=== PATIENT | male | born 1955 | race Caucasian/White ===

== ENCOUNTER 2017-07-08 17:49 | Inpatient (IN) | payer BC ==
[~2017-07-08] VITALS: Ht 180.3 cm; Wt 81.5 kg
[2017-07-08 18:14] LABS: BASOPHIL COUNT 0.1 K/uL (0-0.1); EOSINOPHIL (%) 2.1 % (0-5); EOSINOPHIL COUNT 0.3 K/uL (0-0.3); HEMATOCRIT 44.4 % (38.0-50.0); IMMATURE GRANULOCYTE (%) 0.6 % (0.0-0.7); IMMATURE GRANULOCYTE COUNT 0.1 K/uL; INSTRUMENT ABS NEUTROPHIL CT 10.1 K/uL; LYMPHOCYTE COUNT 2.2 K/uL (1.0-2.8); MCH 31.2 PG (29.0-34.0); MCHC 33.3 G/DL (30.0-36.0); MCV 93.5 FL (86-99); MEAN PLAT.VOLUME 10.2 uM^3 (9.0-12.4); MONOCYTE (%) 6.5 % (3-12); MONOCYTE COUNT 0.9 K/uL (0-0.8); NEUTROPHIL (%) 74.5 % (45-76); NEUTROPHIL COUNT 10.1 K/uL (1.8-6.4); PLATELET COUNT 263 K/uL (156-360); RBC DIS.WIDTH-CV 13.3 % (11.8-14.6); RBC DIS.WIDTH-SD 45.5 % (39-53); RED BLOOD COUNT 4.75 M/uL (4.00-5.50); WHITE BLOOD COUNT 13.6 K/uL (4.1-10.2)
[2017-07-08 18:26] LABS: PROTHROMBIN TIME 11.7 SEC (10.2-12.9)
[2017-07-08 18:28] LABS: PTT 26.5 SEC (25-37)
[2017-07-08 18:33] LABS: AMYLASE 48 IU/L (1-118); CHLORIDE 105 mEq/L (99-109); POTASSIUM 3.4 mEq/L (3.7-5.4); SODIUM 140 mEq/L (136-147)
[2017-07-08 18:35] LABS: GLUCOSE 115 mg/dL (70-99)
[2017-07-08 18:36] LABS: ANION GAP 18 MEQ/L (2-14)
[2017-07-08 18:38] LABS: SERUM ETHYL ALCOHOL 41 mg/dL
[2017-07-08 18:39] LABS: GFR ESTIMATE (CALCULATED) > 59 mL/min/; TROP-I INTERPRETATION NEGATIVE; TROPONIN-I < 0.01 ng/mL (0.0-0.30)
[2017-07-08 18:40] LABS: UREA NITROGEN (BUN) 15 mg/dL (9-23)
[2017-07-08 18:42] LABS: LIPASE 11 U/L (1.0-51.0)
[2017-07-08] MEDS ORDERED: ERYTHROMYC1 APPLICAT RIGHT EYE (19:40)
[2017-07-08] MEDS ORDERED: LO-DOSE ASPIRIN81 M2 PO (19:40)
[2017-07-08 21:07] LABS: ADD MIUA? YES; BILIRUBIN NEGATIVE; BLOOD SMALL; COLOR YELLOW ((YELLOW)); GLUCOSE (STRIP) NEGATIVE; KETONES 5; LEUKOCYTES NEGATIVE; NITRITE NEGATIVE; PROTEIN (STRIP) 30; UROBILINOGEN 0.2 MG/DL (0.2-1.0)
[2017-07-08 21:21] VITALS: BP 200/107
[2017-07-08 21:21] LABS: AMPHETAMINE NEGATIVE (500 ng/mL); BARBITURATES NEGATIVE (200 ng/mL); BENZODIAZEPINES NEGATIVE (150 ng/mL); COCAINE NEGATIVE (150 ng/mL); INTERNAL CONTROLS VALID? YES; METHADONE NEGATIVE (200 ng/mL); METHAMPHETAMINE NEGATIVE (500 ng/mL); OPIATES (MORPHINE) NEGATIVE (100 ng/mL); OXYCODONE NEGATIVE (100 ng/mL); PHENCYCLIDINE NEGATIVE (25 ng/mL); PROPOXYPHENE NEGATIVE (300 ng/mL); THC CANNABINOIDS PRESUMPTIVE POSITIVE (50 ng/mL); TRICYCLIC ANTIDEPRESSANTS NEGATIVE (300 ng/mL)
[2017-07-08 21:22] LABS: ADD MEDTOX COMMENT Y
[2017-07-08 21:24] LABS: BACTERIA NONE SEEN /HPF; EPITHELIAL CELLS NONE SEEN /HPF; MUCUS NONE SEEN /LPF; RED BLOOD CELLS 0-5 /HPF (0-5); UCUL ADDED? NO; WHITE BLOOD CELLS 0-5 /HPF (0-5)
[2017-07-08 21:30] LABS: SPECIFIC GRAVITY 1.066 (1.000-1.030)
[2017-07-08 22:00] VITALS: BP 151/85
[2017-07-08 22:52] LABS: METH RESISTANT S AUREUS PCR NEGATIVE (NEGATIVE)
[2017-07-08 22:53] LABS: PROBE CHECK PASS; SPECIMEN PROCESSING CONTROL PASS
[2017-07-08 23:00] VITALS: BP 145/82
[2017-07-08 23:27] LABS: HDL CHOLESTEROL 50 MG/DL (Desirable>=40); LDL CHOLESTEROL 166 mg/dL (Desirable<100); NON-HDL CHOLESTEROL 192 mg/dL (Desirable<160); TOTAL CHOLESTEROL 242 mg/dL (Desirable<200); TRIGLYCERIDES 129 MG/DL (Normal: <150)
[2017-07-09] VITALS (26 sets, daily range): BP systolic 131–200; BP diastolic 70–138
[2017-07-09 06:51] LABS: Estimated Average Glucose 128 mg/dL (70-123); HEMOGLOBIN A1c (GLYCOHEMOGLOB) 6.1 % HGB (Below 5.7)
[2017-07-09 12:00] LABS: POINT-OF-CARE METER ID UU13113748
[2017-07-09 18:03] LABS: POINT-OF-CARE METER ID UU13113748
[2017-07-09 21:58] LABS: POINT-OF-CARE METER ID UU13113748
[2017-07-10] VITALS (18 sets, daily range): BP systolic 112–172; BP diastolic 52–99
[2017-07-10 05:48] LABS: EOSINOPHIL (%) 1.1 % (0-5); EOSINOPHIL COUNT 0.1 K/uL (0-0.3); HEMATOCRIT 46.6 % (38.0-50.0); IMMATURE GRANULOCYTE (%) 0.5 % (0.0-0.7); IMMATURE GRANULOCYTE COUNT 0.1 K/uL; INSTRUMENT ABS NEUTROPHIL CT 7.7 K/uL; LYMPHOCYTE COUNT 1.4 K/uL (1.0-2.8); MCH 30.4 PG (29.0-34.0); MCHC 33.7 G/DL (30.0-36.0); MCV 90.3 FL (86-99); MEAN PLAT.VOLUME 10.4 uM^3 (9.0-12.4); MONOCYTE (%) 9.4 % (3-12); NEUTROPHIL (%) 75.3 % (45-76); NEUTROPHIL COUNT 7.7 K/uL (1.8-6.4); PLATELET COUNT 244 K/uL (156-360); RBC DIS.WIDTH-CV 13.3 % (11.8-14.6); RBC DIS.WIDTH-SD 44.2 % (39-53); RED BLOOD COUNT 5.16 M/uL (4.00-5.50); WHITE BLOOD COUNT 10.2 K/uL (4.1-10.2)
[2017-07-10 06:31] LABS: ANION GAP 12 MEQ/L (2-14); CHLORIDE 100 MEQ/L (99-109); GFR ESTIMATE (CALCULATED) > 59 mL/min/; GLUCOSE 107 mg/dL (70-99); MAGNESIUM 1.9 mg/dl (1.3-2.7); SAMPLE HEMOLYSIS CHECK 0; SAMPLE ICTERIC CHECK 0; SAMPLE LIPEMIA CHECK 0; SODIUM 136 MEQ/L (136-147); UREA NITROGEN (BUN) 13 mg/dL (9-23)
[2017-07-10 06:36] LABS: POTASSIUM 4.1 MEQ/L (3.7-5.4)
[2017-07-10 12:50] LABS: POINT-OF-CARE METER ID UU14314083
[2017-07-10 18:00] LABS: POINT-OF-CARE METER ID UU14314083
[2017-07-10 21:55] LABS: POINT-OF-CARE METER ID UU14188625
[2017-07-11 03:45] VITALS: BP 118/60
[2017-07-11 07:45] LABS: POINT-OF-CARE METER ID UU14188625
[2017-07-11 07:52] VITALS: BP 142/85
[2017-07-11 12:00] VITALS: BP 102/64
[2017-07-11 12:54] LABS: POINT-OF-CARE METER ID UU14188625
[2017-07-11 16:00] VITALS: BP 133/81
[2017-07-11 17:28] LABS: POINT-OF-CARE METER ID UU14188625
[2017-07-11 19:59] VITALS: BP 154/101
[2017-07-11 20:54] LABS: POINT-OF-CARE METER ID UU14188625
[2017-07-11 23:36] VITALS: BP 151/87
[2017-07-12 07:19] LABS: ANION GAP 14 MEQ/L (2-14); CHLORIDE 99 MEQ/L (99-109); GFR ESTIMATE (CALCULATED) > 59 mL/min/; GLUCOSE 110 mg/dL (70-99); POTASSIUM 4.4 MEQ/L (3.7-5.4); SAMPLE HEMOLYSIS CHECK 0; SAMPLE ICTERIC CHECK 0; SAMPLE LIPEMIA CHECK 0; SODIUM 138 MEQ/L (136-147)
[2017-07-12 07:24] LABS: POINT-OF-CARE METER ID UU14188625
[2017-07-12 07:25] LABS: UREA NITROGEN (BUN) 36 mg/dL (9-23)
[2017-07-12 08:30] VITALS: BP 159/93
[2017-07-12 12:29] LABS: POINT-OF-CARE METER ID UU13113717
[2017-07-12 13:29] VITALS: BP 138/80
[2017-07-12 16:49] VITALS: BP 168/85
[2017-07-12 16:49] LABS: POINT-OF-CARE METER ID UU14174225
[2017-07-12 20:05] VITALS: BP 163/86
[2017-07-12 21:36] LABS: POINT-OF-CARE METER ID UU13113717
[2017-07-12 22:25] LABS: POINT-OF-CARE METER ID UU14188625
[2017-07-12 23:44] VITALS: BP 157/86
[2017-07-13 04:00] VITALS: BP 167/91
[2017-07-13 07:53] VITALS: BP 161/80
[2017-07-13 08:40] LABS: POINT-OF-CARE METER ID UU13113717
[2017-07-13 12:12] VITALS: BP 143/86
[2017-07-13 12:27] LABS: POINT-OF-CARE METER ID UU14174225
[2017-07-13 16:19] VITALS: BP 152/83
[2017-07-13 17:42] LABS: POINT-OF-CARE METER ID UU13113717
[2017-07-13 19:47] VITALS: BP 163/96
[2017-07-13 21:50] LABS: POINT-OF-CARE METER ID UU14188625
[2017-07-13 23:52] VITALS: BP 154/90
[2017-07-14 03:55] VITALS: BP 175/93
[2017-07-14 07:23] VITALS: BP 156/94
[2017-07-14 08:41] LABS: POINT-OF-CARE METER ID UU14174225
[2017-07-14 11:57] LABS: POINT-OF-CARE METER ID UU14188625
[2017-07-14 16:22] VITALS: BP 150/96
[2017-07-14 17:21] LABS: POINT-OF-CARE METER ID UU13113717
[2017-07-14 21:59] LABS: POINT-OF-CARE METER ID UU13113717
[2017-07-14 23:39] VITALS: BP 167/84
[2017-07-15 07:56] VITALS: BP 138/104
[2017-07-15 09:00] LABS: POINT-OF-CARE METER ID UU14174225
[2017-07-15 11:58] LABS: POINT-OF-CARE METER ID UU14174225
[2017-07-15] MEDS ORDERED: ATORVASTATIN CA80 MG PO (15:39)
[2017-07-15] MEDS ORDERED: CLONIDINE HCL0.1 MG PO (15:39)
[2017-07-15] MEDS ORDERED: POLYETHYLENE GL17 GM PO (15:40)
[2017-07-15] MEDS ORDERED: LOPRESSOR25 MG PO (15:40)
[2017-07-15] MEDS ORDERED: NOVOLOG PE100 UNITS/ SC (15:41)
[2017-07-15 16:30] VITALS: BP 178/79
[2017-07-15 17:15] LABS: POINT-OF-CARE METER ID UU14174225
== END 2017-07-15 18:06 | DRG 65 ==
LOC: EME → EDBD 17:49 → EME 17:49 → 4WEST 19:55 → EDOF 19:55 → ENRESERV 19:58 → 4WEST 21:08 → ENRESERV 07-10 18:16 → 5SOUTH 07-10 21:18
PROVIDERS: Emergency Medicine; Hospitalist; Internal Medicine Critical Care Medicine; Surgery
PROC: 3E043GC Introduction of Other Therapeutic Substance into Central Vein, Percutaneous Approach (ICD-10-PCS; principal; 2017-07-08)
DX: I63.332 Cerebral infarction due to thrombosis of left posterior cerebral artery (principal); G81.91 Hemiplegia, unspecified affecting right dominant side; R47.01 Aphasia; R29.810 Facial weakness; K59.00 Constipation, unspecified; I77.810 Thoracic aortic ectasia; I73.00 Raynaud's syndrome without gangrene; F12.90 Cannabis use, unspecified, uncomplicated; I10 Essential (primary) hypertension; E87.6 Hypokalemia; E11.9 Type 2 diabetes mellitus without complications; E78.5 Hyperlipidemia, unspecified; W18.30XA Fall on same level, unspecified, initial encounter; R29.711 NIHSS score 11; R47.1 Dysarthria and anarthria; Z87.891 Personal history of nicotine dependence; Z82.49 Family history of ischemic heart disease and other diseases of the circulatory system
CPT/HCPCS: 70450; 70496; 70498; 70551; 71275; 80048; 80061; 81003; 82150; 82948; 83036; 83690; 83735; 84100; 84484; 84999; 85025; 85610; 85730; 86850; 86900; 86901; 87641; 90686; 92507 GN; 92526 GN; 92610 GN; 93005; 93306; 94760; 94799; 97530 GO; 97530 GP; 99281; 99285; G0480; J1650; J1815; J2997; J7030

== ENCOUNTER 2017-07-15 18:03 | Inpatient (IN) | payer BC ==
[~2017-07-15] VITALS: Ht 180.3 cm; Wt 80.8 kg
[~2017-07-15 18:03] MED LIST: ATORVASTATIN CA80 MG PO; CLONIDINE HCL0.1 MG PO; ERYTHROMYC1 APPLICAT RIGHT EYE; LO-DOSE ASPIRIN81 M2 PO; LOPRESSOR25 MG PO; NOVOLOG PE100 UNITS/ SC; POLYETHYLENE GL17 GM PO
[2017-07-15 18:50] VITALS: BP 167/84
[2017-07-15 23:46] VITALS: BP 134/83
[2017-07-16 06:40] VITALS: BP 142/87
[2017-07-16 06:52] LABS: HEMATOCRIT 40.5 % (38.0-50.0); MCH 30.7 PG (29.0-34.0); MCHC 34.6 G/DL (30.0-36.0); MCV 88.8 FL (86-99); MEAN PLAT.VOLUME 10.7 uM^3 (9.0-12.4); PLATELET COUNT 309 K/uL (156-360); RBC DIS.WIDTH-CV 13.1 % (11.8-14.6); RBC DIS.WIDTH-SD 43.1 % (39-53); RED BLOOD COUNT 4.56 M/uL (4.00-5.50); WHITE BLOOD COUNT 8.3 K/uL (4.1-10.2)
[2017-07-16 08:29] LABS: ANION GAP 11 MEQ/L (2-14); CHLORIDE 97 MEQ/L (99-109); POTASSIUM 4.5 MEQ/L (3.7-5.4); SAMPLE HEMOLYSIS CHECK 0; SAMPLE ICTERIC CHECK 0; SAMPLE LIPEMIA CHECK 0; SODIUM 133 MEQ/L (136-147); TOTAL BILIRUBIN 0.9 MG/DL (0.0-1.0)
[2017-07-16 08:37] LABS: ALKALINE PHOSPHATASE 208 IU/L (3-129); GFR ESTIMATE (CALCULATED) > 59 mL/min/; GLUCOSE 109 mg/dL (70-99); UREA NITROGEN (BUN) 31 mg/dL (9-23)
[2017-07-16 15:12] VITALS: BP 148/90
[2017-07-16 21:41] VITALS: BP 166/90
[2017-07-17 05:26] VITALS: BP 139/79
[2017-07-17 05:56] LABS: ALKALINE PHOSPHATASE 225 IU/L (3-129); ANION GAP 10 MEQ/L (2-14); CHLORIDE 98 MEQ/L (99-109); GFR ESTIMATE (CALCULATED) > 59 mL/min/; GLUCOSE 103 mg/dL (70-99); POTASSIUM 4.9 MEQ/L (3.7-5.4); SAMPLE HEMOLYSIS CHECK 1; SAMPLE ICTERIC CHECK 0; SAMPLE LIPEMIA CHECK 0; SODIUM 134 MEQ/L (136-147); TOTAL BILIRUBIN 0.8 MG/DL (0.0-1.0); UREA NITROGEN (BUN) 29 mg/dL (9-23)
[2017-07-17 15:05] VITALS: BP 149/89
[2017-07-17 16:01] LABS: HEMATOCRIT 41.7 % (38.0-50.0); MCH 30.8 PG (29.0-34.0); MCHC 34.3 G/DL (30.0-36.0); MCV 89.9 FL (86-99); MEAN PLAT.VOLUME 10.4 uM^3 (9.0-12.4); PLATELET COUNT 330 K/uL (156-360); RBC DIS.WIDTH-CV 13.2 % (11.8-14.6); RBC DIS.WIDTH-SD 43.1 % (39-53); RED BLOOD COUNT 4.64 M/uL (4.00-5.50); WHITE BLOOD COUNT 8.1 K/uL (4.1-10.2)
[2017-07-17 16:25] LABS: ANION GAP 12 MEQ/L (2-14); CHLORIDE 100 MEQ/L (99-109); GFR ESTIMATE (CALCULATED) > 59 mL/min/; GLUCOSE 105 mg/dL (70-99); POTASSIUM 4.5 MEQ/L (3.7-5.4); SAMPLE HEMOLYSIS CHECK 0; SAMPLE ICTERIC CHECK 0; SAMPLE LIPEMIA CHECK 0; SODIUM 134 MEQ/L (136-147); UREA NITROGEN (BUN) 31 mg/dL (9-23); URIC ACID 6.3 mg/dL (3.1-9.2)
[2017-07-17 21:20] VITALS: BP 170/90
[2017-07-18 05:01] VITALS: BP 160/80
[2017-07-18 15:55] VITALS: BP 130/77
[2017-07-19 05:14] VITALS: BP 122/60
[2017-07-19 08:09] LABS: ALKALINE PHOSPHATASE 232 IU/L (3-129); DIRECT BILIRUBIN 0.2 mg/dL (0.0-0.3); FERRITIN 678 NG/ML (22-322); TOTAL BILIRUBIN 0.9 MG/DL (0.0-1.0)
[2017-07-19 11:29] LABS: URIC ACID 6.3 mg/dL (3.1-9.2)
[2017-07-19 11:33] LABS: HBSG INDEX 0.23
[2017-07-19 11:34] LABS: HPCA INDEX 0.12
[2017-07-19 11:43] LABS: C-REACTIVE PROTEIN 151.7 MG/L (0-10)
[2017-07-19 15:29] VITALS: BP 143/78
[2017-07-19 20:37] LABS: INTER. NORMALIZED RATIO 1.3; PROTHROMBIN TIME 14.8 SEC (10.2-12.9)
[2017-07-19 20:40] LABS: PTT 34.1 SEC (25-37)
[2017-07-20 05:31] VITALS: BP 152/84
[2017-07-20 15:04] VITALS: BP 155/88
[2017-07-20 23:27] LABS: ALPHA-1-ANTITRYPSIN+ 276 mg/dL (83-199)
[2017-07-21 05:33] VITALS: BP 133/73
[2017-07-21 12:55] LABS: MITOCHONDRIAL (M2) ANTIBODIES+ <=20.0 U (<=20.0)
[2017-07-21 13:20] LABS: ANTI-SMOOTH MUSCLE (Actin)+ <20 U (<20)
[2017-07-21 15:09] VITALS: BP 159/71
[2017-07-22 05:19] VITALS: BP 134/79
[2017-07-22 07:45] LABS: ALKALINE PHOSPHATASE 209 IU/L (3-129); DIRECT BILIRUBIN 0.1 mg/dL (0.0-0.3)
[2017-07-22 07:46] LABS: TOTAL BILIRUBIN 0.5 MG/DL (0.0-1.0)
[2017-07-22 16:00] VITALS: BP 143/86
[2017-07-22 22:53] VITALS: BP 180/86
[2017-07-23 06:33] VITALS: BP 161/89
[2017-07-23 10:21] LABS: ALKALINE PHOSPHATASE 195 IU/L (3-129); DIRECT BILIRUBIN 0.2 mg/dL (0.0-0.3); TOTAL BILIRUBIN 0.5 MG/DL (0.0-1.0)
[2017-07-23 15:29] VITALS: BP 137/74
[2017-07-24 06:13] VITALS: BP 141/87
[2017-07-24 06:51] LABS: ALKALINE PHOSPHATASE 177 IU/L (3-129); DIRECT BILIRUBIN 0.1 mg/dL (0.0-0.3); TOTAL BILIRUBIN 0.5 MG/DL (0.0-1.0)
[2017-07-24 15:17] VITALS: BP 146/80
[2017-07-25 05:40] VITALS: BP 142/73
[2017-07-25 15:30] VITALS: BP 158/72
[2017-07-26 05:21] VITALS: BP 158/83
[2017-07-26 08:12] LABS: ALKALINE PHOSPHATASE 147 IU/L (3-129); DIRECT BILIRUBIN 0.1 mg/dL (0.0-0.3); TOTAL BILIRUBIN 0.5 MG/DL (0.0-1.0)
[2017-07-26 17:04] VITALS: BP 140/89
[2017-07-27 04:48] VITALS: BP 131/84
[2017-07-27 15:36] VITALS: BP 149/81
[2017-07-28 05:43] VITALS: BP 141/79
[2017-07-28 16:02] VITALS: BP 157/90
[2017-07-28 16:22] VITALS: BP 157/90
[2017-07-29 05:06] LABS: TOTAL BILIRUBIN 0.5 mg/dL (0.0-1.0)
[2017-07-29 05:07] LABS: ALKALINE PHOSPHATASE 131 IU/L (3-129)
[2017-07-29 05:09] LABS: DIRECT BILIRUBIN 0.2 mg/dL (0.0-0.3)
[2017-07-29 06:20] VITALS: BP 128/82
[2017-07-29 16:00] VITALS: BP 137/75
[2017-07-29 21:50] VITALS: BP 160/87
[2017-07-29 22:00] VITALS: BP 160/87
[2017-07-30 05:05] VITALS: BP 146/71
[2017-07-30 15:26] VITALS: BP 143/87
[2017-07-31 06:02] VITALS: BP 134/82
[2017-07-31 07:36] LABS: ALKALINE PHOSPHATASE 119 IU/L (3-129); DIRECT BILIRUBIN 0.1 mg/dL (0.0-0.3); TOTAL BILIRUBIN 0.6 MG/DL (0.0-1.0)
[2017-07-31 16:09] VITALS: BP 139/82
[2017-08-01 04:36] VITALS: BP 134/79
[2017-08-01 16:00] VITALS: BP 159/73
[2017-08-02 15:51] VITALS: BP 175/87
[2017-08-03 05:07] VITALS: BP 148/83
[2017-08-03 15:31] VITALS: BP 138/83
[2017-08-03 21:00] VITALS: BP 136/80
[2017-08-04 06:03] VITALS: BP 148/81
[2017-08-04 15:11] VITALS: BP 144/77
[2017-08-05 05:59] VITALS: BP 142/80
[2017-08-05 15:00] VITALS: BP 129/70
[2017-08-06 05:35] VITALS: BP 129/72
[2017-08-06 16:21] VITALS: BP 146/79
[2017-08-06 20:55] VITALS: BP 155/71
[2017-08-07 05:33] VITALS: BP 126/68
[2017-08-07 15:23] VITALS: BP 140/84
[2017-08-07 21:21] VITALS: BP 129/71
[2017-08-08 05:27] VITALS: BP 122/72
[2017-08-08 07:34] LABS: HEMATOCRIT 39.5 % (38.0-50.0); MCHC 33.7 G/DL (30.0-36.0); MCV 92.1 FL (86-99); MEAN PLAT.VOLUME 9.6 uM^3 (9.0-12.4); PLATELET COUNT 305 K/uL (156-360); RBC DIS.WIDTH-CV 12.4 % (11.8-14.6); RBC DIS.WIDTH-SD 41.7 % (39-53); RED BLOOD COUNT 4.29 M/uL (4.00-5.50)
[2017-08-08 07:56] LABS: ALKALINE PHOSPHATASE 138 IU/L (3-129); ANION GAP 10 MEQ/L (2-14); CHLORIDE 101 MEQ/L (99-109); GFR ESTIMATE (CALCULATED) > 59 mL/min/ (58.99-99999); GLUCOSE 100 mg/dL (70-99); POTASSIUM 4.3 MEQ/L (3.7-5.4); SAMPLE HEMOLYSIS CHECK 0; SAMPLE ICTERIC CHECK 0; SAMPLE LIPEMIA CHECK 0; SODIUM 139 MEQ/L (136-147); TOTAL BILIRUBIN 0.5 MG/DL (0.0-1.0); UREA NITROGEN (BUN) 11 mg/dL (9-23)
[2017-08-08 15:52] VITALS: BP 153/88
[2017-08-09 05:59] VITALS: BP 127/89
[2017-08-09] MEDS ORDERED: POLYETHYLENE GL17 GM PO (12:34)
[2017-08-09] MEDS ORDERED: ATORVASTATIN CA80 MG PO (12:34)
[2017-08-09] MEDS ORDERED: FLUOXETINE HCL10 MG PO (12:34)
[2017-08-09] MEDS ORDERED: CLONIDINE HCL0.1 MG PO (12:34)
[2017-08-09] MEDS ORDERED: LOPRESSOR25 MG PO (12:34)
[2017-08-09] MEDS ORDERED: LO-DOSE ASPIRIN81 M2 PO (12:34)
[2017-08-09] MEDS ORDERED: SENNA PLUS TAB1 EACH PO (12:34)
== END 2017-08-09 13:45 | disposition home health service (06) | DRG 57 ==
LOC: 3WEST 18:03 → ENPENDDIS 08-09 → 3WEST 08-09 13:45
PROVIDERS: Internal Medicine Gastroenterology; Physical Medicine & Rehabilitation Pain Medicine; Physician Assistant Surgical
PROC: F07M0ZZ Range of Motion and Joint Mobility Treatment of Musculoskeletal System - Whole Body (ICD-10-PCS; principal; 2017-07-15)
DX: I69.351 Hemiplegia and hemiparesis following cerebral infarction affecting right dominant side (principal); I69.320 Aphasia following cerebral infarction; I69.322 Dysarthria following cerebral infarction; R26.2 Difficulty in walking, not elsewhere classified; E87.1 Hypo-osmolality and hyponatremia; E87.6 Hypokalemia; E78.5 Hyperlipidemia, unspecified; I10 Essential (primary) hypertension; I73.00 Raynaud's syndrome without gangrene; K59.00 Constipation, unspecified; M10.9 Gout, unspecified; M25.521 Pain in right elbow; R74.8 Abnormal levels of other serum enzymes; R94.5 Abnormal results of liver function studies; M17.9 Osteoarthritis of knee, unspecified; Z87.891 Personal history of nicotine dependence; Z79.82 Long term (current) use of aspirin
CPT/HCPCS: 73100; 73130; 73140; 73564; 74177; 76705; 80048 91; 80053; 80076; 81256 90; 82103 90; 82390; 82728; 83516 90; 84550; 85027; 85610; 85651; 85730; 86038; 86140; 86256 90; 86803; 87340; 92507 GN; 92523 GN; 92526 GN; 97110 GO; 97112 GO; 97530 GP; G0283 GO; J0690; J1650; J7512